=== PATIENT | male | born 1940 | race Caucasian/White ===

== ENCOUNTER 2024-09-16 12:22 | Outpatient (CLI) | payer MEDICARE, OTHER ==
[~2024-09-16 12:22] MED LIST: ASPI81TA52 PO; ATOR40TA72 PO; CETI10CA PO; CHOL20003 PO; CLOP75TA34 PO; FINA5TAB11 PO; LISI40TA13 PO; MULT-1249 PO; OMEG1CAP46 PO; TAMS-55 PO; THIA100T70 PO; VIT1CAPS46 PO
== END 2024-09-16 23:59 | disposition home or self-care (01) ==
LOC: MRI 12:22
PROVIDERS: ATTEND Specialist
DX: M51.369 Other intervertebral disc degeneration, lumbar region without mention of lumbar back pain or lower extremity pain (principal); C79.52 Secondary malignant neoplasm of bone marrow; R97.20 Elevated prostate specific antigen [PSA]; M47.27 Other spondylosis with radiculopathy, lumbosacral region; M47.817 Spondylosis without myelopathy or radiculopathy, lumbosacral region; M48.07 Spinal stenosis, lumbosacral region
CPT/HCPCS: 72148

== ENCOUNTER 2025-01-14 16:29 | Emergency (ER) | payer MEDICARE, OTHER ==
[~2025-01-14] VITALS: Ht 175.3 cm; Wt 90.0 kg
[~2025-01-14 16:29] MED LIST changes: -LISI40TA13 PO; +LISI40TA20 PO
[2025-01-14 16:32] VITALS: TEMP 97.1
--- NOTE | 2025-01-14 19:27 | Physician Documentation ---
History of Present Illness ~ Chief Complaint: Extremity Swelling Stated Complaint: SWOLLEN FOOT Time Seen by MD: 19:27 HPI Patient presents to the emergency room with swelling to his right foot over the past few days. He denies any injuries. Patient does have history of metastatic cancer in his advised to his doctor to go to the emergency room to rule out DVT. She denies any associated pain. No fevers. Medication Reconciliation Allergies: Coded Allergies: No Known Allergies (Unverified , 08/21/23) Scheduled Aspirin (Aspirin EC), 1 TAB PO DAILY, (Reported) Atorvastatin Calcium (Atorvastatin Calcium), 1 TAB PO DAILY, (Reported) Cholecalciferol (Vitamin D3) (Vitamin D3), 1 TAB PO DAILY, (Reported) Clopidogrel Bisulfate (Clopidogrel), 1 TAB PO DAILY, (Reported) Finasteride (Finasteride), 1 TAB PO DAILY, (Reported) Lisinopril* (Lisinopril*), 1 TAB PO DAILY, (Reported) Multivitamin (Multivitamin), 1 TAB PO DAILY, (Reported) Pinetta-3 Fatty Acids/Fish Oil (P[place]ta 3 1,000 mg Softgel), 1 CAP PO DAILY, (Reported) Tamsulosin Hcl* (Flomax*), 1 CAP PO DAILY, (Reported) Thiamine Mononitrate (Vitamin B-1), 1 TAB PO DAILY, (Reported) Vit C/E/Zn/Coppr/Lutein/Zeaxan (Preservision Areds 2 Softgel), 1 CAP PO DAILY, (Reported) Scheduled PRN Cetirizine Hcl (Zyrtec), 1 CAP PO DAILY PRN for allergies, (Reported) Review of Systems ROS All review of systems negative except as per HPI Physical Exam Vital Signs: Temperature: 97.1, Source: Temporal, Heart Rate: 64, Respiratory Rate: 16, BP: 152/74, Pulse Oximetry: 90, Weight: 90.000 Oxygen Flow Rate: 0 Physical Exam General: Patient is awake, alert, oriented x4 in no acute distress and well appearing.~ Head: Normocephalic and atraumatic. Eyes: Conjunctival normal. EOMI. PERRL. ENT: Mucous membranes moist. Neck: Supple, trachea is midline. Chest: Clear to auscultation bilaterally without rales, rhonchi, or wheezes. There is no accessory muscle use or retractions. Cardiac: RRR without murmurs, gallops, or rubs. Extremities: Left lower extremity normal, right lower extremity with swelling from foot to calf with no erythema no tenderness to palpation. Movements i ntact. 1+ dorsalis pedis pulse Progress Results/Orders Results/Orders Orders - KOBI DEMPSEY MD Foot, Complete (3vw Min) (01/14/25 19:38) Completed Orders - KOBI DEMPSEY MD Foot, Complete (3vw Min) (01/14/25 19:38) Vital Signs 01/14/25 01/14/25 01/14/25 16:32 19:31 19:31 Temp 97.1 Pulse 64 68 Resp 16 16 B/P (MAP) 152/74 170/83 (112) Pulse Ox 90 94 O2 Flow Rate 0 2.0 Medical Decision Making Findings Patient presents to the emergency room with right foot swelling as per HPI. Differentials include but are not limited to DVT, cellulitis, foreign body, fracture, vascular insufficiency. Ultrasound reassuring as his x-ray. X-ray was performed as patient does have history of diabetes. No abnormality seen. As symptoms are unilateral I do not feel he was suffering from congestive heart failure or renal failure. Possible swelling of his known cancer. Departure Disposition: HOME / SELF CARE / HOMELESS Impression: Primary Impression: Edema of lower extremity Condition: Stable Discharge Instructions: Edema, [id number] Referrals: NO PRIMARY CARE PROVIDER (PCP) Signature Scribe Signature: No scribe Attestation: The note accurately reflects work and decisions made by me.Kobi Dempsey MD 01/14/25 20:29 KOBI DEMPSEY MD Jan 14, 2025 19:27
--- NOTE | 2025-01-14 19:46 | VASCULAR REPORT ---
CLINICAL HISTORY: Right lower extremity swelling TECHNIQUE: Color and duplex doppler imaging of the right lower extremity veins was performed. Vessel compression if possible was also performed. WID: COMPARISON: None FINDINGS: Contralateral left common femoral vein: Normal flow and phasicity. Right common femoral vein: Normal compressibility and flow. Right femoral vein: Normal compressibility and flow. Right popliteal vein: Normal compressibility and flow. Proximal calf veins are normally compressible. IMPRESSION: NO SONOGRAPHIC EVIDENCE FOR DEEP VENOUS THROMBOSIS IN THE RIGHT LOWER EXTREMITY VEINS.
--- NOTE | 2025-01-14 20:05 | RADIOLOGY REPORT ---
EXAM: DI FOOT, COMPLETE (3VW MIN) CLINICAL INDICATION: swelling right TECHNIQUE: DI FOOT, COMPLETE (3VW MIN) Comparison: None FINDINGS/IMPRESSION: There is no evidence of acute fracture or dislocation. The visualized joint space is well maintained. The alignment is anatomical. There is no radiopaque foreign body.
[2025-01-14 20:51] VITALS: BP 150/103; PULSE 57; RESP 16; O2SAT 93
== END 2025-01-14 20:52 | disposition home or self-care (01) ==
LOC: ER 16:30
DX: R60.0 Localized edema (principal); Z79.899 Other long term (current) drug therapy; Z79.82 Long term (current) use of aspirin
CPT/HCPCS: 73630; 93971; 99284